=== PATIENT | female | born 1990 | race Caucasian/White ===

== ENCOUNTER 2019-11-19 13:22 | Emergency (ER) | payer MEDICAID ==
--- NOTE | 2019-11-19 13:46 | Emergency Department Record ---
History of Present Illness - General Chief Complaint: Abdominal Pain Stated Complaint: ABD PAIN,DIARRHEA Time Seen by Provider: 11/19/19 13:31 Source: Patient Mode of Arrival: Ambulatory - History of Present Illness Initial Comments: patient states vomiting and diarrhea for 2 days and 5 vomiting episopes yesterday and 3 today . 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 PSH none, Onset/Timin -: Days(s) Location: Diffuse Severity: Moderate Severity scale (1-10): 4 Quality: Aching, Cramping Consistency: Constant - Related Data LMP Date: 11/06/19 Home Medications Medication Instructions Recorded Confirmed Last Taken Melatonin 10 mg PO QHS 11/19/19 11/19/19 1 Day Ago ~11/18/19 Norethindrone-E.estradiol-Iron 1 each PO DAILY 11/19/19 11/19/19 1 Day Ago [Ar Fe 1.5-30 Tablet] ~11/18/19 Previous Rx's Medication Instructions Recorded Ondansetron HCl [Zofran] 4 mg PO Q6HR #30 tablet 11/19/19 Allergies Allergy/AdvReac Type Severity Reaction Status Date / Time meclocycline Allergy Severe ANAPHYLAXIS Verified 11/19/19 13:33 tetracycline Allergy Severe ANAPHYLAXIS Verified 11/19/19 13:33 sulfamethoxazole Allergy Intermediate RASH Verified 11/19/19 13:33 [From Bactrim] trimethoprim [From Bactrim] Allergy Intermediate RASH Verified 11/19/19 13:33 Travel Screening - Travel/Exposure Within Last 30 Days Have you traveled within the last 30 days?: No - Travel/Exposure Within Last Year Have you traveled outside the [place] in the last year?: No - Additonal Travel Details Have you been exposed to anyone with a communicable illness?: No - Travel Symptoms Symptom Screening: None Review of Systems Reviewed: No additional complaints except as noted below Constitutional: Reports: As per HPI. Denies: Chills, Fever, Malaise, Night sweats, Weakness, Weight change Eyes: Reports: As per HPI. Denies: Eye discharge, Eye pain, Photophobia, Vision change ENT: Reports: As per HPI. Denies: Congestion, Dental pain, Ear pain, Epistaxis, Hearing loss, Throat pain Respiratory: Reports: As per HPI. Denies: Cough, Dyspnea, Hemoptysis, Stridor, Wheezes Cardiovascular: Reports: As per HPI. Denies: Arrhythmia, Chest pain, Dyspnea on exertion, Edema, Murmurs, Orthopnea, Palpitations, Paroxysmal nocturnal dyspnea, Rheumatic Fever, Syncope Endocrine: Reports: As per HPI. Denies: Fatigue, Heat or cold intolerance, Polydipsia, Polyuria Gastrointestinal: Reports: As per HPI, Abdominal pain, Diarrhea, Vomiting. Denies: Constipation, Hematemesis, Hematochezia, Melena, Nausea Genitourinary: Reports: As per HPI. Denies: Abnormal menses, Discharge, D yspareunia, Dysuria, Frequency, Hematuria, Incontinence, Retention, Urgency Musculoskeletal: Reports: As per HPI. Denies: Arthralgia, Back pain, Gout, Joint swelling, Myalgia, Neck pain Skin: Reports: As per HPI. Denies: Bruising, Change in color, Change in hair/nails, Lesions, Pruritus, Rash Neurological: Reports: As per HPI. Denies: Abnormal gait, Confusion, Headache, Numbness, Paresthesias, Seizure, Tingling, Tremors, Vertigo, Weakness Psychiatric: Reports: As per HPI. Denies: Anxiety, Auditory hallucinations, Depression, Homicidal thoughts, Suicidal thoughts, Visual hallucinations Hematological/Lymphatic: Reports: As per HPI. Denies: Anemia, Blood Clots, Easy bleeding, Easy bruising, Swollen glands Past Medical History - SOCIAL HISTORY Smoking Status: Never smoker Alcohol Use: Occasional Drug Use: None - RESPIRATORY Hx Respiratory Disorders: Yes Hx Asthma: Yes (rescue inhaler) - CARDIOVASCULAR Hx Cardio Disorders: No - NEURO Hx Neuro Disorders: No - GI Hx GI Disorders: Yes Hx Celiac Disease: Yes Hx Irritable Bowel: Yes - Hx Genitourinary Disorders: No - ENDOCRINE Hx Endocrine Disorders: No Hx Diabetes: No Hx Thyroid Disease: No - MUSCULOSKELETAL Hx Musculoskeletal Disorders: No - PSYCH Hx Psych Problems: No - HEMATOLOGY/ONCOLOGY Hx Hematology/Oncology Disorders: Yes Hx Anemia: Yes Family Medical History Any Significant Family History?: Yes Physical Exam - General General Appearance: Alert, Oriented x3, Cooperative, No acute distress - Head Head exam: Normal inspection - Eye Eye exam: Normal appearance, PERRL Pupils: Normal accommodation - ENT ENT exam: Normal exam, Mucous membranes moist, Normal external ear exam, Normal orophraynx, TM's normal bilaterally Ear exam: Normal external inspection. negative: External canal tenderness Nasal Exam: Normal inspection. negative: Discharge, Sinus tenderness Mouth exam: Normal external inspection, Tongue normal Teeth exam: Normal inspection. negative: Dental caries Throat exam: Normal inspection. negative: Tonsillar erythema, Tonsillar exudate - Neck Neck exam: Normal inspection, Full ROM. negative: Tenderness - Respiratory Respiratory exam: Normal lung sounds bilaterally. negative: Respiratory distress - Cardiovascular Cardiovascular Exam: Regular rate, Normal rhythm, Normal heart sounds - GI/Abdominal GI/Abdominal exam: Soft, Normal bowel sounds, Tenderness (more LLQ and epigastric) - Rectal Rectal exam: Deferred - exam: Deferred - Extremities Extremities exam: Normal inspection, Full ROM, Normal capillary refill. negative: Tenderness - Back Back exam: Reports: Normal inspection, Full ROM. Denies: Muscle spasm, Rash noted, Tenderness - Neurological Neurological exam: Alert, Normal gait, Oriented X3, Reflexes normal - Psychiatric Psychiatric exam: Normal affect, Normal mood - Skin Skin exam: Dry, Intact, Normal color, Warm Course Vital Signs 11/19/19 13:23 Temperature 99.3 F Pulse Rate 96 H Respiratory 16 Rate Blood Pressure 110/66 Pulse Ox 95 Medical Decision Making - Data Complexity MDM Data: Labs Ordered and/or Reviewed (cdif neg) - Lab Data Result diagrams: 11/19/19 13:55 11/19/19 13:55 Disposition Clinical Impression: Gastroenteritis Disposition: Home, Self-Care Condition: (1) Good Instructions: Acute Diarrhea (ED) Additional Instructions: clear liquids for 36 hours and than bland food Prescriptions: Ondansetron HCl [Zofran] 4 mg PO Q6HR #30 tablet Forms: Patient Portal Access Time of Disposition: 15:23 Quality - Quality Measures Quality Measures: N/A - Blood Pressure Screening Does Patient Have Any of the Following: No Blood Pressure Classification: Normal BP Reading Systolic Measurement: 110 Diastolic Measurement: 66 Screening for High Blood Pressure: < Normal BP, F/U Not Required > [[id number]]
[2019-11-19 14:06] LABS: ABSOLUTE NEUTROPHIL COUNT 9.75; BASO % 0.2 % (0-6); EOS % 0.5 % (0-6); HEMATOCRIT 44.5 % (35.0-47.0); HEMOGLOBIN 14.5 gm/dl (11.6-16.0); LYMPH % 2.8 % (16-45); MEAN CELL VOLUME 90.6 fl (81-97); MEAN CORPUSCULAR HEMOGLOBIN 29.5 pg (27-33); MEAN CORPUSCULAR HGB CONC 32.6 g/dl (32-36); MEAN PLATELET VOLUME 9.4 fl (7.4-10.4); MONO % 3.4 % (0-9); PLATELET COUNT 357 K/uL (130-400); RED BLOOD COUNT 4.91 M/uL (3.80-5.40); RED CELL DISTRIBUTION WIDTH 12.6 % (11.5-14.5); WHITE BLOOD COUNT W/O DIFF 10.5 K/uL (4.2-12.2)
[2019-11-19] MEDS: 0.9 % SODIUM CHLORIDE 1,000 ML BAG IV ONE (14:06)
[2019-11-19 14:17] LABS: BLOOD UREA NITROGEN 16 mg/dL (6-20); EST GLOMERULAR FILTRATION RATE > 60 mL/min
[2019-11-19 14:18] LABS: TOTAL PROTEIN 7.7 g/dL (6.6-8.7)
[2019-11-19] MEDS ORDERED: ONDANSETRON HCL IV 4 MG/2 ML VIAL IVP ONE (14:19)
[2019-11-19 14:20] LABS: GLUCOSE,RANDOM 121 mg/dL (74-109)
[2019-11-19 14:23] LABS: ALBUMIN 4.7 g/dL (4.0-5.0); ALKALINE PHOSPHATASE 71 U/L (35-104); ALT/SGPT 46 U/L (<33); AST/SGOT 31 U/L (10.0-35.0)
[2019-11-19 14:29] LABS: BILIRUBIN,DIRECT < 0.2 mg/dL (0-0.3)
[2019-11-19] MEDS ORDERED: 0.9 % SODIUM CHLORIDE 1000ML 1,000 ML IV SCH (14:45)
== END 2019-11-19 15:29 | disposition home or self-care (01) ==
LOC: ER 13:22
DX: K52.9 Noninfective gastroenteritis and colitis, unspecified (principal); R11.10 Vomiting, unspecified
CPT/HCPCS: 80048; 80076; 85027; 87493; 96361; 96374; 99284; J2405; J7030